=== PATIENT | female | born 1965 | race Two or more races ===

== ENCOUNTER 2020-07-17 07:54 | Day surgery (SDC) | payer BC ==
[2020-07-12 15:51] VITALS: BMI 30.9
[2020-07-17] MEDS ORDERED: LIDOCAINE HCL/PF 2% SDV 5ML VIAL ONE (08:07)
[2020-07-17] MEDS ORDERED: PROPOFOL 20 ML ONE ×3 (08:07)
[2020-07-17 09:53] VITALS: BP 124/82; PULSE 66; TEMP 98
== END 2020-07-17 09:53 | disposition home or self-care (01) ==
LOC: FASU-ENDO 07:54
PROVIDERS: ATTEND Internal Medicine Gastroenterology
PROC: 0DJD8ZZ Inspection of Lower Intestinal Tract, Via Natural or Artificial Opening Endoscopic (ICD-10-PCS; principal; 2020-07-17 08:39)
DX: K57.30 Diverticulosis of large intestine without perforation or abscess without bleeding (principal); Z12.11 Encounter for screening for malignant neoplasm of colon